=== PATIENT | male | born 1975 | race Caucasian/White ===

== ENCOUNTER 2020-08-28 05:03 | Emergency (ER) | payer OTHER ==
[~2020-08-28] VITALS: Ht 190.5 cm; Wt 108.9 kg
[2020-08-28 05:04] VITALS: BP 168/110
--- NOTE | 2020-08-28 05:04 | NUR ---
TO BED AMBULATORY
--- NOTE | 2020-08-28 05:26 | NUR ---
45 YO/M W CO R SIDED FLANK PAIN 3 OUT OF 10 X 2 HOURS AND BLOOD IN URINE X2 DAYS. REPORTS PAIN GETS BETTER WHEN HE LAYS DOWN. DENIES: PAINFUL URINATION, URGENCY, FREQUENCY. REPORTS NORMAL BLADDER PATTERN. DENIES FEVER. DARK RED URINE NOTED IN URINE SAMPLE. NO ACTUE DISTRESS NOTED. PATIENT LAYING IN BED, LOCKED IN LOWEST POSITION HOB ELEVATED X1 SIDE RAIL UP. PMH: HTN, ENLARGED PROSTATE, TONSILLECTOMY NKA
--- NOTE | 2020-08-28 05:26 | NUR ---
ERMD AT BEDSIDE ASSESSING PATIENT.
--- NOTE | 2020-08-28 05:45 | NUR ---
LABS DRAWN AND HANDED TO RON FROM JAMEL.
--- NOTE | 2020-08-28 05:48 | NUR ---
urine sample handed to Alfredo from lab.
[2020-08-28 05:58] LABS: BASOPHILS # (AUTO) 0.1 K/uL (0.00-0.22); BASOPHILS % (AUTO) 0.8 % (0.0-2.0); EOSINOPHILS # (AUTO) 0.1 K/uL (0-0.4); EOSINOPHILS % (AUTO) 2.1 % (0.0-4.0); HEMOGLOBIN 15.8 g/dL (12.0-18.0); LYMPHOCYTES # (AUTO) 1.7 K/uL (2.0-11.5); MEAN CORPUSCULAR HEMOGLOBIN 31 pg (27-31); MEAN CORPUSCULAR HGB CONC 35 g/dL (33-37); MEAN CORPUSCULAR VOLUME 87.9 fL (80-94); MONOCYTES # (AUTO) 0.6 K/uL (0.8-1.0); MONOCYTES % (AUTO) 8.1 % (1.7-9.3); NEUTROPHILS # (AUTO) 4.5 K/uL (1.8-7.7); PLATELET COUNT (AUTO) 291 K/uL (140-450); RED BLOOD CELL COUNT(AUTO) 5.12 MIL/uL (4.20-6.10); RED CELL DISTRIBUTION WIDTH 14.1 % (11.6-13.7); WHITE BLOOD COUNT (AUTO) 6.9 K/uL (4.8-10.8)
[2020-08-28] MEDS: NACL 0.9% 1,000 ML IV SCH (06:08)
[2020-08-28 06:12] LABS: APPEARANCE,URINE HAZY (CLEAR); BILIRUBIN,URINE 1+ (NEGATIVE); BLOOD, URINE 3+ (NEGATIVE); COLOR,URINE BROWN (YELLOW); LEUKOCYTE ESTERASE ,URINE NEGATIVE (NEGATIVE); NITRITE, URINE NEGATIVE (NEGATIVE); PH,URINE 5.5 (5.0-9.0); UGLUCOSE NEGATIVE (NEGATIVE)
--- NOTE | 2020-08-28 06:14 | NUR ---
PATIENT AMBULATED TO BATHROOM W STEADY GAIT.
[2020-08-28 06:18] LABS: ALBUMIN 4.6 g/dL (3.4-5.0); ANION GAP 15.6 (8-16); CARBON DIOXIDE 23.9 mmol/L (21-32); CREATININE 0.8 mg/dL (0.6-1.3); POTASSIUM 3.5 mmol/L (3.5-5.1)
[2020-08-28 06:27] LABS: RBC,URINE TOO NUMEROUS TO COUN /HPF (0-5); WBC,URINE 0-5 /HPF (0-5)
[2020-08-28] MEDS ORDERED: cefTRIAXone 1,000 MG VIAL ONE (06:47)
--- NOTE | 2020-08-28 07:09 | NUR ---
REPORT GIVEN TO NNACY PENA FOR TRANSFER OF CARE.
--- NOTE | 2020-08-28 07:09 | NUR ---
REPORT WAS PASSED FROM YOANA CRUZ [employer]IST.
[2020-08-28] MEDS ORDERED: HYDR-4004 PO (08:19)
[2020-08-28] MEDS ORDERED: TAMS0.4C96 PO (08:19)
[2020-08-28] MEDS ORDERED: LOSA100T1 PO (08:19)
[2020-08-28] MEDS ORDERED: IBUP-2213 PO (08:51)
[2020-08-28] MEDS ORDERED: CIPR500T4 PO (08:51)
[2020-08-28 09:03] VITALS: BP 158/88
--- NOTE | 2020-08-28 09:04 | NUR ---
Patient discharged with v/s stable. Written and verbal after care instructions given and explained. Patient alert, oriented and verbalized understanding of instructions. Ambulatory with steady gait. All questions addressed prior to discharge. ID band removed. Patient advised to follow up with PMD. Rx of CIPROFLOXACIN, IBUPROFEN given. Patient educated on indication of medication including possible reaction and side effects. Opportunity to ask questions provided and answered.
== END 2020-08-28 09:04 | disposition home or self-care (01) ==
LOC: MED 05:03
DX: R10.9 Unspecified abdominal pain (principal); R31.9 Hematuria, unspecified; I10 Essential (primary) hypertension; Z79.899 Other long term (current) drug therapy; Z98.890 Other specified postprocedural states
CPT/HCPCS: 36415; 74176; 80053; 81001; 85025; 96361; 96365; 99284; J0696; J7030